=== PATIENT | male | born 1950 | race Caucasian/White ===

== ENCOUNTER 2020-06-07 05:30 | Day surgery (SDC) | payer OTHER ==
[2020-06-07] MEDS ORDERED: DUI500 PO (09:28)
[2020-06-07] MEDS ORDERED: PERCOCET 5-3251 EACH PO (09:28)
== END 2020-06-07 12:55 | disposition home or self-care (01) ==
LOC: CIR.AMB 05:30
PROVIDERS: ATTEND Orthopaedic Surgery
DX: S42.221A 2-part displaced fracture of surgical neck of right humerus, initial encounter for closed fracture (principal); Z20.828 Contact with and (suspected) exposure to other viral communicable diseases
CPT/HCPCS: 23616; 20902; C1776